=== PATIENT | female | born 1950 | race Caucasian/White ===

== ENCOUNTER → 2021-02-28 | Day surgery (SDC) | payer MEDICARE ==
[2021-02-25 09:25] LABS: BASOPHILS # (AUTO) 0.1 (0.0-0.1); BASOPHILS % 0.9 % (0.0-1.0); EOSINOPHILS # (AUTO) 0.3 (0.0-0.4); EOSINOPHILS % 3.3 % (0.0-6.0); HEMATOCRIT 39.7 % (34.2-44.1); HEMOGLOBIN 12.3 g/dL (12.0-16.0); LYMPHOCYTES # (AUTO) 1.7 (1.0-3.2); LYMPHOCYTES % 18.9 % (18.0-39.1); MEAN CORPUSCULAR HEMOGLOBIN 26.7 pg (28-32); MEAN CORPUSCULAR VOLUME 86.1 fL (81-99); MONOCYTES # (AUTO) 0.8 (0.2-0.8); NEUTROPHILS # (AUTO) 5.9 (2.1-6.9); NEUTROPHILS % 67.6 % (38.7-80.0); PLATELET COUNT 233 x10e3/uL (140-360); RED BLOOD COUNT 4.61 x10e6/uL (3.6-5.1)
[2021-02-25 09:43] LABS: CALCIUM 9.6 mg/dL (8.4-10.2); CREATININE, SERUM 0.89 mg/dL (0.57-1.11)
[~2021-02-28] MED LIST: ACTOS15 MG PO; BUPIVACAINE HCL 0.5% INJ 30 ML VIAL INJ ONE; CLINDAMYCIN 300MG 50 ML IV ONE; CRESTOR10 MG PO; GENTAMICIN 80MG/NS 100 ML 200 ML IV ONE; LIDOCAINE 2%/ EPINEPHRINE 20ML MDV ONE; LISINOPRIL-HCT1 EACH PO; METFORMIN HCL500 MG PO; MOBIC7.5 MG PO; NEURONTIN100 MG PO; PROVENTIL HFA6.7 GM INH
[2021-02-28 11:40] VITALS: BP 111/60
== END | disposition home or self-care (01) ==
LOC: OR 07:08
PROVIDERS: ATTEND Urology
DX: N39.41 Urge incontinence (principal); J45.909 Unspecified asthma, uncomplicated; I10 Essential (primary) hypertension; E78.5 Hyperlipidemia, unspecified; E11.9 Type 2 diabetes mellitus without complications; K21.9 Gastro-esophageal reflux disease without esophagitis; M19.90 Unspecified osteoarthritis, unspecified site; Z88.8 Allergy status to other drugs, medicaments and biological substances; Z01.810 Encounter for preprocedural cardiovascular examination; Z01.812 Encounter for preprocedural laboratory examination; Z01.818 Encounter for other preprocedural examination; Z20.822 Contact with and (suspected) exposure to COVID-19; Z79.84 Long term (current) use of oral hypoglycemic drugs; Z87.891 Personal history of nicotine dependence
CPT/HCPCS: 36415 ×2; 64581; 64590; 71046; 76000; 80048; 82948; 85025; 93005; 95972; C1820; J1580; J2001; U0002